=== PATIENT | female | born 1980 | race Caucasian/White ===

== ENCOUNTER 2019-04-09 20:49 | Emergency (ER) | payer BC ==
[~2019-04-09] VITALS: Ht 170.2 cm; Wt 56.8 kg
[~2019-04-09 20:49] MED LIST: MOTRIN 600600 MG/TAB PO; PERCOCET 325 MG1 TA2 PO; PRENATAL VITAMI1 TAB PO
[2019-04-09 20:51] VITALS: TEMP 97.8
[2019-04-09 21:24] LABS: HEMATOCRIT 41.2 % (37.0-47.0); HEMOGLOBIN 14.1 g/dl (12.5-16.0); MEAN CELL VOLUME 87 fl (80.0-100.0); MEAN CORPUSCULAR HEMOGLOBIN 30 pg (27.0-31.0); MEAN CORPUSCULAR HGB CONC 34 g/dl (33.0-37.0); MEAN PLATELET VOLUME 9.8 fl (7.4-10.4); PLATELET COUNT 327 K/mm3 (130-400); RED BLOOD COUNT 4.72 M/mm3 (4.10-5.30); REDCELL DISTRIBUTION WIDTH-CV 12.1 % (11.5-14.5)
[2019-04-09 21:29] LABS: COLLECTION METHOD CLEAN CATCH
[2019-04-09 21:37] LABS: MUCOUS Present /lpf; PH 7 (5-8); URINE APPEARANCE Clear; URINE BACTERIA None Seen /hpf; URINE BILIRUBIN Negative (NEGATIVE); URINE BLOOD Negative (NEGATIVE); URINE COLOR Yellow; URINE GLUCOSE Negative (NEGATIVE); URINE KETONE 1+ (NEGATIVE); URINE LEUKOCYTE ESTERASE Negative (NEGATIVE); URINE NITRATE Negative (NEGATIVE); URINE PROTEIN(semi-quant) Negative (NEGATIVE); URINE RBC 0-2 /hpf; URINE UROBILINOGEN Negative (NEGATIVE)
[2019-04-09 21:44] LABS: ALANINE AMINOTRANSFERASE 18 U/L (9-52); ALBUMIN 4.5 gm/dL (3.5-5.0); ALKALINE PHOSPHATASE 76 U/L (50-136); ANION GAP 10 mmol/L (7-16); AST,SGOT 24 U/L (15-37); BILIRUBIN,TOTAL 0.7 mg/dL (0.0-1.0); BLOOD UREA NITROGEN 19 mg/dL (7-17); CARBON DIOXIDE 25 mmol/L (22-30); CHLORIDE 106 mmol/L (98-107); CREATININE, serum 0.63 (0.52-1.25); GLUCOSE 104 mg/dL (74-106); LIPASE 108 U/L (23-300); POTASSIUM 3.4 mmol/L (3.4-5.0); SODIUM 140 mmol/L (137-145)
[2019-04-09 21:46] LABS: C-REACTIVE PROTEIN < 0.5 mg/dL (0.0-0.9)
[2019-04-09 21:56] LABS: BAND 10 % (0-10); LYMPHOCYTE 4 % (20.0-51.0); NEUTROPHILS 84 % (42.0-75.2); PLATELET ESTIMATE NORMAL (NORMAL)
[2019-04-09] MEDS ORDERED: PEPCID 20MG TAB20 MG PO (21:57)
[2019-04-09] MEDS ORDERED: ZOFRAN 4MG T4 MG/TAB PO ×2 (22:38)
[2019-04-09] MEDS ORDERED: OMNICEF 300MG300 MG PO ×2 (23:57)
[2019-04-10 00:27] VITALS: BP 99/55; PULSE 72
[2019-04-10] MEDS ORDERED: OMNICEF 300MG300 MG PO (00:38)
[2019-04-10] MEDS ORDERED: ZOFRAN 4MG T4 MG/TAB PO (00:38)
== END 2019-04-10 00:40 | disposition home or self-care (01) ==
LOC: COL.ER 20:49
PROVIDERS: Emergency Medicine
DX: R19.7 Diarrhea, unspecified (principal); R11.2 Nausea with vomiting, unspecified; R10.31 Right lower quadrant pain; R10.10 Upper abdominal pain, unspecified
CPT/HCPCS: J2405; J7030; Q9967

== ENCOUNTER → 2019-10-03 | Outpatient (CLI) | payer BC ==
[~2019-10-03] MED LIST changes: +OMNICEF 300MG300 MG PO; +PEPCID 20MG TAB20 MG PO; +ZOFRAN 4MG T4 MG/TAB PO
== END ==
LOC: COL.RAD 08:00
DX: D18.03 Hemangioma of intra-abdominal structures (principal)
CPT/HCPCS: Q9967

== ENCOUNTER → 2019-10-10 | Outpatient (CLI) | payer BC | LOC: COL.RAD 07:12 | DX: D18.03 Hemangioma of intra-abdominal structures (principal) | CPT/HCPCS: A9585 ==

== ENCOUNTER → 2023-01-28 | Outpatient (CLI) | payer BC | LOC: COL.RAD 14:58 | DX: M79.89 Other specified soft tissue disorders (principal); M79.661 Pain in right lower leg ==

== ENCOUNTER → 2023-04-30 | Outpatient (CLI) | payer BC | LOC: MC.RAD 08:13 | DX: Z12.31 Encounter for screening mammogram for malignant neoplasm of breast (principal) ==